=== PATIENT | male | born 1995 | race African-American/Black ===

== ENCOUNTER 2024-09-09 16:29 | Emergency (ER) | payer OTHER ==
[~2024-09-09] VITALS: Ht 190.5 cm; Wt 90.7 kg
[~2024-09-09 16:29] MED LIST: MUPI22OI7 TP
[2024-09-09 16:41] VITALS: BP 134/91; TEMP 98.4; O2SAT 98
== END 2024-09-09 16:56 | disposition home or self-care (01) ==
LOC: ER 16:44
DX: S01.111D Laceration without foreign body of right eyelid and periocular area, subsequent encounter (principal); Z48.02 Encounter for removal of sutures; Z60.2 Problems related to living alone; X58.XXXD Exposure to other specified factors, subsequent encounter

== ENCOUNTER 2024-11-14 15:33 | Emergency (ER) | payer MEDICAID, OTHER ==
[~2024-11-14] VITALS: Ht 190.5 cm; Wt 86.2 kg
[2024-11-14] MEDS ORDERED: LIDOCAINE 2% 20 ML MDV ONE (17:27)
[2024-11-14] MEDS ORDERED: LIDOCAINE 1%-EPI 1:100,000 20 ML VIAL ONE (17:28)
[2024-11-14] MEDS: LIDOCAINE 2%-EPI 1:100,000 30 ML VIAL TP ONE (17:31)
[2024-11-14 18:21] VITALS: BP 130/70; TEMP 98.6; O2SAT 95
== END 2024-11-14 18:39 | disposition home or self-care (01) ==
LOC: ER 15:39
DX: S01.111A Laceration without foreign body of right eyelid and periocular area, initial encounter (principal); Z59.00 Homelessness unspecified; W18.39XA Other fall on same level, initial encounter; Y93.01 Activity, walking, marching and hiking; Y92.89 Other specified places as the place of occurrence of the external cause; Y99.8 Other external cause status
CPT/HCPCS: 12011; 99282; J3490

== ENCOUNTER 2024-11-18 14:51 | Emergency (ER) | payer MEDICAID ==
[~2024-11-18] VITALS: Ht 185.4 cm; Wt 86.2 kg
[2024-11-18 14:55] VITALS: BP 128/71; TEMP 98.3
[2024-11-18 15:06] VITALS: O2SAT 95
== END 2024-11-18 16:01 | disposition home or self-care (01) ==
LOC: ER 14:54
DX: S01.111D Laceration without foreign body of right eyelid and periocular area, subsequent encounter (principal); Z48.02 Encounter for removal of sutures; Z60.2 Problems related to living alone; Z79.899 Other long term (current) drug therapy; X58.XXXD Exposure to other specified factors, subsequent encounter